=== PATIENT | male | born 1965 | race Caucasian/White ===

== ENCOUNTER 2021-07-05 11:30 | Inpatient (IN) | payer OTHER ==
[~2021-07-05] VITALS: Ht 175.3 cm; Wt 86.2 kg
[2021-07-05] MEDS ORDERED: SIMVASTATIN5 MG (12:02)
== END 2021-07-07 18:59 | disposition home or self-care (01) | DRG 378 ==
LOC: ER 11:30 → MEDI 17:49
PROVIDERS: ADMIT Specialist; ATTEND Specialist
PROC: BW21YZZ Computerized Tomography (CT Scan) of Abdomen and Pelvis using Other Contrast (ICD-10-PCS; 2021-07-05)
PROC: 30233N1 Transfusion of Nonautologous Red Blood Cells into Peripheral Vein, Percutaneous Approach (ICD-10-PCS; principal; 2021-07-06)
DX: K92.2 Gastrointestinal hemorrhage, unspecified (principal); N17.8 Other acute kidney failure; D64.9 Anemia, unspecified; E78.2 Mixed hyperlipidemia; E86.0 Dehydration; E87.8 Other disorders of electrolyte and fluid balance, not elsewhere classified; Z86.16 Personal history of COVID-19

== ENCOUNTER 2021-08-10 08:15 | Day surgery (SDC) | payer OTHER ==
[~2021-08-10 08:15] MED LIST: SIMVASTATIN5 MG
== END 2021-08-10 17:30 | disposition home or self-care (01) ==
LOC: CIR.AMB 08:15
PROVIDERS: ATTEND Colon & Rectal Surgery
DX: K64.8 Other hemorrhoids (principal); K92.2 Gastrointestinal hemorrhage, unspecified; E86.0 Dehydration; E78.2 Mixed hyperlipidemia; Z86.16 Personal history of COVID-19; N17.9 Acute kidney failure, unspecified; D64.9 Anemia, unspecified; F12.90 Cannabis use, unspecified, uncomplicated; G47.33 Obstructive sleep apnea (adult) (pediatric); Z20.822 Contact with and (suspected) exposure to COVID-19

== ENCOUNTER 2022-07-04 06:29 | Day surgery (SDC) | payer OTHER | END 2022-07-04 10:50 | disposition home or self-care (01) | LOC: AMB-ENDOS 06:29 | PROVIDERS: ATTEND Internal Medicine Gastroenterology | DX: K31.7 Polyp of stomach and duodenum (principal); D64.89 Other specified anemias; Z20.822 Contact with and (suspected) exposure to COVID-19 ==